=== PATIENT | female | born 1995 | race American Indian/Alaskan Native ===

== ENCOUNTER 2016-11-07 21:29 | Emergency (ER) | payer SELFPAY ==
[2016-11-07 23:45] LABS: Bacteria,Urine 1+ /HPF (Negative); Bilirubin,Urine NEG (Negative); Blood,Urine NEG (Negative); Ketones,Urine NEG (Negative); Leukocyte Esterase,Urine LG (Negative); Mucus,Urine FEW /HPF; Nitrite,Urine NEG (Negative); Protein,Urine <15 mg/dL mg/dL (Negative); RBC,Urine < 1.0 /HPF (0.0-6.0); Urobilinogen,Urine < 2.0 mg/dL (<2.0)
[2016-11-08] MEDS ORDERED: BENADRYL IV ONE (03:15)
[2016-11-08] MEDS ORDERED: TORADOL IV ONE (03:15)
[2016-11-08] MEDS ORDERED: REGLAN IV ONE (03:15)
--- NOTE | 2016-11-08 04:03 | Emergency Department Report ---
ED Headache HPI - General Chief Complaint: Headache Stated Complaint: DIZZY/HEADACHE Time Seen by Provider: 11/08/16 03:14 - History of Present Illness Initial Comments: 21-year-old female comes in with complaint of headache times one day with nausea and dizziness 2 days. Patient denies any fever or chills she does admit to photophobia and seeing floaters. She has only tried Motrin and Advil which she says helps just a little. She reports that she has not been able to eat much because she gets nauseated when she eats. Patient reports no past medical history and currently takes no meds. She does admit to having headaches in the past but not to this extent. Timing/Duration: 24 hours Quality: moderate Head Injury Location: temporal Allergies/Adverse Reactions: Allergies No Known Allergies Allergy (Verified 11/07/16 22:24) Home Medications: Ambulatory Orders Ibuprofen [Motrin] 600 mg PO Q8H PRN #30 tablet 11/08/16 ED Review of Systems ROS: Stated complaint: DIZZY/HEADACHE Other details as noted in HPI Constitutional: denies: chills, fever Eyes: vision change, other (photophobia and floaters) Respiratory: denies: cough, shortness of breath, wheezing Cardiovascular: denies: chest pain, palpitations Endocrine: no symptoms reported Gastrointestinal: nausea Genitourinary: denies: urgency, dysuria, discharge Musculoskeletal: denies: back pain, joint swelling, arthralgia Skin: denies: rash, lesions Neurological: headache Psychiatric: denies: anxiety, depression Hematological/Lymphatic: denies: easy bleeding, easy bruising ED Past Medical Hx - Past Medical History Previous Medical History?: No - Surgical History Past Surgical History?: No - Social History Smoking Status: Never Smoker Substance Use Type: None - Medications Home Medications: Home Medications Medication Instructions Recorded Confirmed Last Taken Type Ibuprofen [Motrin] 600 mg PO Q8H PRN #30 tablet 11/08/16 Unknown Rx ED Physical Exam - General Limitations: No Limitations General appearance: alert, in no apparent distress - Head Head exam: Present: atraumatic, normocephalic - Eye Eye exam: Present: normal appearance - ENT ENT exam: Present: mucous membranes moist - Neck Neck exam: Present: normal inspection - Respiratory Respiratory exam: Present: normal lung sounds bilaterally. Absent: respiratory distress - Cardiovascular Cardiovascular Exam: Present: regular rate, normal rhythm. Absent: systolic murmur, diastolic murmur, rubs, gallop - Expanded Neurological Exam Expanded Speech: Present: fluid speech Cranial nerves: EOM's Intact: Normal, Gag Reflex: Normal, Tongue Deviation: Normal Cerebellar function: Finger to Nose: Normal, Heel to Joe: Normal, Romberg: Normal Upper motor neuron: Teddy Neglect: Normal, Pronator Drift: Normal Sensory exam: Upper Extremity Light Touch: Normal, Upper Extremity Pin Prick: Normal, Upper Extremity Temperature: Normal, UE 2 Point Discrimination: Normal, Lower Extremity Light Touch: Normal, Lower Extremity Pin Prick: Normal Motor strength exam: RUE: 5, LUE: 5, RLE: 5, LLE: 5 Best Eye Response (Melodie): (4) open spontaneously Best Motor Response (Melodie): (6) obeys commands Best Verbal Response (Furlong): (5) oriented Furlong Total: 15 - Psychiatric Psychiatric exam: Present: normal affect, normal mood - Skin Skin exam: Present: warm, dry, intact, normal color. Absent: rash ED Course Vital Signs 11/07/16 22:24 Temperature 98.4 F Pulse Rate 75 Respiratory 20 Rate Blood Pressure 109/71 O2 Sat by Pulse 99 Oximetry - Reevaluation(s) Reevaluation #1: 11/08/16 04:52 Patient reports she feels much better she no longer has a headache ED Medical Decision Making - Medical Decision Making Patient has been evaluated by this provider in fast track. Discussed the patient that we will give her an IV of Benadryl and Toradol and Reglan to help with her headaches and nausea. Discussed the patient that this may be her first real migraine. Also discussed the patient that she needs to follow up with her primary care provider for further evaluation and possible neurology evaluation of migraines tend to persist. Patient verbalized understanding Critical care attestation.: If time is entered above; I have spent that time in minutes in the direct care of this critically ill patient, excluding procedure time. ED Disposition Clinical Impression: Headache Qualifiers: Headache type: unspecified Headache chronicity pattern: acute headache Intractability: not intractable Qualified Code(s): R51 - Headache Disposition: DISCHARGED TO HOME OR SELFCARE Is pt being admited?: No Does the pt Need Aspirin: No Condition: Stable Instructions: Acute Headache (ED) Additional Instructions: Pain medication as prescribed. Follow up with her primary care provider for further evaluation. Prescriptions: Ibuprofen [Motrin] 600 mg PO Q8H PRN #30 tablet PRN Reason: Pain Referrals: PRIMARY CARE, [Primary Care Provider] - 3-5 Days Forms: Work/School Release Form(ED), Accompanied Note
[2016-11-08 05:51] VITALS: BP 115/76
== END 2016-11-08 05:50 | disposition home or self-care (01) ==
LOC: ED 21:29
DX: R51 Headache (principal)
CPT/HCPCS: 81001; 81025; 96374; 96375; 99283; J1200; J1885; J2765